=== PATIENT | female | born 1990 | race Caucasian/White ===

== ENCOUNTER 2017-11-02 13:59 | Emergency (ER) | payer MEDICAID, OTHER ==
[2017-11-02] MEDS ORDERED: Ciprofloxacin 500 MG Tab ONE (14:55)
[2017-11-02] MEDS ORDERED: Phenazopyridine 100 MG Tab ONE (14:55)
--- NOTE | 2017-11-02 15:11 | EDM.PDOC ---
ED HPI GENERAL MEDICAL PROBLEM - General Chief Complaint: General Stated Complaint: POSSIBLE UTI Time Seen by Provider: 11/02/17 14:45 Source of Information: Reports: Patient History Limitations: Reports: No Limitations - History of Present Illness INITIAL COMMENTS - FREE TEXT/NARRATIVE: According to patient she has been having burning sensation with urination and also frequent urination since today morning. She claims she was fine yesterday. No blood urine. She claims she has constant urge to urinate and only urinates small amounts. No fever or chills. No nausea or vomiting. no back pain. Pt claims she is just starting her periods today. No other complaints. Onset: Today Onset Date: 11/02/17 Onset Time: 06:00 Severity: Moderate Improves with: Reports: None Worsens with: Reports: None Associated Symptoms: Denies: Confusion, Chest Pain, Cough, Diaphoresis, Fever/ Chills, Headaches, Loss of Appetite, Nausea/Vomiting, Rash, Seizure, Shortness of Breath, Weakness - Related Data Allergies Allergy/AdvReac Type Severity Reaction Status Date / Time No Known Allergies Allergy Verified 11/02/17 14:54 Home Meds: Home Meds NK [No Known Home Meds] 11/02/17 [History] ED ROS GENERAL - Review of Systems Review Of Systems: See Below Constitutional: Denies: Fever, Chills HEENT: Denies: Rhinitis, Sinus Problem, Throat Pain, Throat Swelling Respiratory: Denies: Cough, Sputum Cardiovascular: Denies: Chest Pain, Lightheadedness GI/Abdominal: Denies: Abdominal Pain, Diarrhea, Nausea, Vomiting : Reports: Dysuria, Frequency, Urgency. Denies: Flank Pain, Hematuria, Urinary Retention Musculoskeletal: Denies: Joint Pain, Joint Swelling Skin: Denies: Pruritis, Rash ED EXAM, GENERAL - Physical Exam Exam: See Below Exam Limited By: No Limitations General Appearance: Alert, WD/WN, No Apparent Distress Eye Exam: Bilateral Eye: EOMI, PERRL Ears: Normal External Exam, Normal Canal, Hearing Grossly Normal, Normal TMs Ear Exam: Bilateral Ear: Auricle Normal, Canal Normal, TM normal Nose: Normal Inspection, Normal Mucosa, No Blood Throat/Mouth: Normal Inspection, Normal Lips, Normal Teeth, Normal Gums, Normal Oropharynx, Normal Voice, No Airway Compromise Head: Atraumatic, Normocephalic Neck: Normal Inspection, Supple, Non-Tender, Full Range of Motion Respiratory/Chest: No Respiratory Distress, Lungs Clear, Normal Breath Sounds, No Accessory Muscle Use, Chest Non-Tender Cardiovascular: Normal Peripheral Pulses, Regular Rate, Rhythm, No Edema, No Gallop, No JVD, No Murmur, No Rub GI/Abdominal: Normal Bowel Sounds, Soft, Non-Tender, No Organomegaly, No Distention, No Abnormal Bruit, No Mass Extremities: Normal Inspection, Normal Range of Motion, Non-Tender, Normal Capillary Refill, No Pedal Edema Neurological: Alert, Oriented, CN II-XII Intact, Normal Cognition, Normal Gait, Normal Reflexes, No Motor/Sensory Deficits Skin Exam: Warm, Dry, Intact, Normal Color, No Rash Course - Vital Signs Text/Narrative:: Pt's UA shows positive nitrites and micro show more than 100 WBC, there is blood secondary to her being on periods. . Pt reassured that she has acute UTI. Have started her on Cipro 500mg 3 times daily for 1 wk. Also pyridium 100mg 3 times daily to help with urinary discomfort. Advised to drink plenty of fluids. rest and hydration. Will send urine culture. Will followup with culture results. Followup in clinic if symptoms worsen. Last Recorded V/S: Last Vital Signs Temp 97.1 F 11/02/17 15:05 Pulse 95 11/02/17 15:05 Resp 18 11/02/17 15:05 BP 121/80 11/02/17 15:05 Pulse Ox 99 11/02/17 15:05 - Orders/Labs/Meds Orders: Active Orders 24 hr Category Date Time Status CULTURE URINE [RM] Stat Lab 11/02/17 15:19 UA W/MICROSCOPIC [URIN] Stat Lab 11/02/17 15:01 Ordered Labs: Laboratory Tests 11/02/17 Range/Units 15:01 Urine Color Brown Urine Appearance Cloudy (CLEAR) Urine pH 5.5 (5.0-8.0) Ur Specific [place] >= 1.030 (1.003-1.030) Urine Protein 100 H (NEGATIVE) mg/dL Urine Glucose (UA) Negative (NEGATIVE) mg/dL Urine Ketones Negative (NEGATIVE) mg/dL Urine Occult Blood Large H (NEGATIVE) Urine Nitrite Positive H (NEGATIVE) Urine Bilirubin Small H (NEGATIVE) Urine Urobilinogen 0.2 (0.2-1.0) E.U./dL Ur Leukocyte Esterase Small H (NEGATIVE) Urine RBC >100 H /HPF Urine WBC >100 H /HPF Urine WBC Clumps Many /HPF Ur Squamous Epith Cells Few /HPF Urine Bacteria Moderate H /HPF Departure - Departure Time of Disposition: 15:30 Disposition: Home, Self-Care 01 Condition: Good Clinical Impression: Acute UTI - Discharge Information Referrals: PCP,None [Primary Care Provider] - Forms: ED Department Discharge Additional Instructions: Pt's UA shows positive nitrites and micro show more than 100 WBC, there is blood secondary to her being on periods. . Pt reassured that she has acute UTI. Have started her on Cipro 500mg 3 times daily for 1 wk. Also pyridium 100mg 3 times daily to help with urinary discomfort. Advised to drink plenty of fluids. rest and hydration. Will send urine culture. Will followup with culture results. Followup in clinic if symptoms worsen. - Problem List & Annotations (1) Acute UTI SNOMED Code(s): 774097963 Code(s): N39.0 - URINARY TRACT INFECTION, SITE NOT SPECIFIED Status: Acute Current Visit: Yes - Problem List Review Problem List Initiated/Reviewed/Updated: Yes - My Orders Last 24 Hours: My Active Orders 11/02/17 15:01 UA W/MICROSCOPIC [URIN] Stat 11/02/17 15:19 CULTURE URINE [RM] Stat - Assessment/Plan Last 24 Hours: My Active Orders 11/02/17 15:01 UA W/MICROSCOPIC [URIN] Stat 11/02/17 15:19 CULTURE URINE [RM] Stat Assessment:: Acute UTI Plan: Pt's UA shows positive nitrites and micro show more than 100 WBC, there is blood secondary to her being on periods. . Pt reassured that she has acute UTI. Have started her on Cipro 500mg 3 times daily for 1 wk. Also pyridium 100mg 3 times daily to help with urinary discomfort. Advised to drink plenty of fluids. rest and hydration. Will send urine culture. Will followup with culture results. Followup in clinic if symptoms worsen.
== END 2017-11-02 15:30 | disposition home or self-care (01) ==
LOC: LB.ED 13:59
DX: N39.0 Urinary tract infection, site not specified (principal)
CPT/HCPCS: 81001; 87086; 87088; 87186; 99283; A9270-GY

== ENCOUNTER 2021-12-11 20:06 | Emergency (ER) | payer MEDICAID | END 2021-12-11 21:00 | disposition home or self-care (01) | LOC: LB.ED 20:06 | DX: S82.892A Other fracture of left lower leg, initial encounter for closed fracture (principal); W01.0XXA Fall on same level from slipping, tripping and stumbling without subsequent striking against object, initial encounter | CPT/HCPCS: 73600-LT; 73630-LT; 99281; 99283 ==